=== PATIENT | male | born 1965 | race Caucasian/White ===

== ENCOUNTER 2022-05-20 08:13 | Emergency (ER) | payer OTHER ==
[2022-05-20 08:58] VITALS: BP 157/91
== END 2022-05-20 08:54 | disposition home or self-care (01) ==
LOC: ED 08:13
DX: T81.32XA Disruption of internal operation (surgical) wound, not elsewhere classified, initial encounter (principal); F17.200 Nicotine dependence, unspecified, uncomplicated; Z28.310 Unvaccinated for COVID-19